=== PATIENT | male | born 1975 | race Caucasian/White ===

== ENCOUNTER → 2019-07-05 | Outpatient (CLI) | payer OTHER ==
[2019-07-05] VITALS (11 sets, daily range): BP systolic 135–164; BP diastolic 76–95; PULSE 51–82
[~2019-07-05] VITALS: Ht 185.4 cm; Wt 81.5 kg
[~2019-07-05] MED LIST: NORCO 325 MG-51 TAB PO; ZOFRAN ODT4 MG PO
--- NOTE | 2019-07-05 13:30 | NUR ---
pt to ct per ambulation. Pt had initial ct of abdomen and pelvis with contrast. Following ct pt placed in prone position and monitors applied.
--- NOTE | 2019-07-05 13:57 | NUR ---
Specimens obtained and placed in formalin and RPMI by Dr Guardado. Specimens labeled.
== END ==
LOC: COL.RAD 11:00
DX: R19.09 Other intra-abdominal and pelvic swelling, mass and lump (principal); R93.89 Abnormal findings on diagnostic imaging of other specified body structures
CPT/HCPCS: J2250; J3010; Q9967

== ENCOUNTER → 2019-07-16 | Outpatient (CLI) | payer OTHER | LOC: COL.RAD 13:47 | DX: C62.90 Malignant neoplasm of unspecified testis, unspecified whether descended or undescended (principal) | CPT/HCPCS: Q9967 ==

== ENCOUNTER 2019-08-01 05:14 | Day surgery (SDC) | payer OTHER ==
[2019-08-01] VITALS (7 sets, daily range): BP systolic 124–150; BP diastolic 54–88; PULSE 51–82; TEMP 97.2–97.9
[~2019-08-01] VITALS: Ht 185.4 cm; Wt 87.0 kg
[2019-08-01] MEDS ORDERED: ADVIL200 MG PO (05:32)
--- NOTE | 2019-08-01 08:21 | NUR ---
Initial visit; Patient thanked Incident Response Consultant for offering comfort, encouragement and prayer prior to his surgical procedure.
--- NOTE | 2019-08-01 09:44 | NUR ---
PATIENT TRANSPORTED PER CART FROM PACU ACCOMPANIED BY PACU STAFF TO [facility]. MONITORS APPLIED. VSS. VERBAL REPORT RECEIVED. PATIENT STATES THAT HIS PAIN IS INCREASING UPON MOVING AROUND ON CART. RATING 09/02. 0954 PATIENT AMBULATED TO BATHROOM WITH 1 ASSIST. SLOW STEADY GAIT. PATIENT STATES HE VOIDED WITHOUT PROBLEMS. AMBULATED BACK TO CART.
--- NOTE | 2019-08-01 10:00 | NUR ---
VSS. PATIENT AND TALKING. PATIENT EATING MUFFIN AND DRINKING JUICE. PATIENT STATES DISCOMFORT CONTINUES. REVIEWING ORDERS.
--- NOTE | 2019-08-01 10:15 | NUR ---
VSS. PATIENT DENIES NAUSEA. PATIENT GIVEN 1 PERCOCET TAB ORDERED. PATIENT DRINKING COFFEE. EATS ALL OF MUFFING AND DRINKS ALL OF JUICE.
--- NOTE | 2019-08-01 10:41 | NUR ---
VSS. PATIENT TALKING WITH . PATEINT STATES THAT PAIN MED IS STARTING TO HELP WITH DISCOMFORT.
--- NOTE | 2019-08-01 10:45 | NUR ---
VSS. PATIENT STATES THAT HIS DISCOMFORT IS CONTROLLED. DRSING TO LOWER ABD C,D &I. DISCUSSED INCISION CARE WITH PATIENT AND . 1050 IV DC'D INTACT, PRESSURE APPLIED AND DRESSING APPLIED. PATIENT AMBULATED TO BATHROOM AND VOIDS. PATIENT CHANGES INTO STREET CLOTHES. 1100 DISCHARGE INSTRUCTIONS GIVEN WRITTEN AND VERBAL. QUESTIONS ANSWERED AND PATIENT AND VOICE UNDERSTANDING. 1105 DISCHARGED PER W/C ACCOMPANIED BY AMB STAFF TO [facility].
== END 2019-08-01 11:05 | disposition home or self-care (01) ==
LOC: SDCO 05:14
DX: C62.91 Malignant neoplasm of right testis, unspecified whether descended or undescended (principal); N13.30 Unspecified hydronephrosis; Z98.52 Vasectomy status
CPT/HCPCS: C1769; C2617; J0360; J0690; J1100; J2270; J2405; J2704; J3010; J7120; Q9967

== ENCOUNTER 2019-09-03 06:32 | Day surgery (SDC) | payer OTHER ==
[~2019-09-03] VITALS: Ht 185.4 cm; Wt 78.7 kg
[~2019-09-03 06:32] MED LIST changes: +ADVIL200 MG PO
[2019-09-03 06:54] VITALS: BP 133/74; PULSE 71; TEMP 97.4
[2019-09-03 09:35] VITALS: BP 117/60; PULSE 73; TEMP 97.5
--- NOTE | 2019-09-03 09:35 | NUR ---
Patient arrives to [facility] [place] [facility] via cart, accompanied by Bradford Velazquez CRNA and LEENA English. Bedside report received. He is drowsy, but easily aroused to voice and oriented. He denies any pain or nausea. His is brought to the bedside. His operative site is clean, dry, swiftset intact. Monitoring is applied for post-operative VS. VSS and WNL on room air. Call light in reach.
[2019-09-03 09:45] VITALS: BP 121/73; PULSE 62
[2019-09-03] MEDS ORDERED: MOTRIN 600600 MG/TAB PO (09:45)
[2019-09-03] MEDS ORDERED: NORCO 325 MG-51 TAB PO (09:45)
--- NOTE | 2019-09-03 09:45 | NUR ---
Patient is resting comfortably in his room. VSS and WNL on room air. He denies pain or nausea. Operative site remains clean, dry, intact. He is offered something to eat/drink. He selects and receives orange juice, coffee, a muffin, and jello.
[2019-09-03 10:00] VITALS: BP 141/72; PULSE 79
--- NOTE | 2019-09-03 10:00 | NUR ---
Patient denies any pain, nausea, or other complaints. He is tolerating PO well. He has met discharge criteria. Will return with discharge paperwork.
[2019-09-03 10:15] VITALS: BP 125/61; PULSE 55
--- NOTE | 2019-09-03 10:40 | NUR ---
Discharge criteria met. Discharge instructions are discussed. He denies any questions and verbalizes understanding. PIV is removed with catheter intact and hemostasis achieved. He changes to his clothing independently. He is escorted to the exit via wheelchair by staff. He is discharged to home with ride in private vehicle with his at 1040.
== END 2019-09-03 10:40 | disposition home or self-care (01) ==
LOC: SDCO 06:32
DX: C62.91 Malignant neoplasm of right testis, unspecified whether descended or undescended (principal); Z98.52 Vasectomy status; Z90.79 Acquired absence of other genital organ(s); Z79.899 Other long term (current) drug therapy
CPT/HCPCS: C1788; J0690; J1644; J2704; J3010; J7120